=== PATIENT | female | born 1950 | race Caucasian/White ===

== ENCOUNTER 2019-06-25 00:13 | Day surgery (SDC) | payer MEDICARE, SELFPAY ==
[2019-06-20 14:55] VITALS: BMI 23.4
[2019-06-25 07:47] VITALS: BP 139/81; PULSE 93; RESP 17; TEMP 36.6; O2SAT 100; BMI 21.4
--- NOTE | 2019-06-25 07:48 | P.PNAN_ITS ---
Anes - Initial Pre Proc Eval Procedure: Operation Date: 06/25/19 08:30 Proposed Procedures p Esophagogastroduodenoscopy & Colonoscopy - Gibson Billings MD Date/Time: 06/25/19 07:48 Surgeon: Gibson Billings MD Pre Op Diagnosis: Change In Bowel Habits/ Epigastric Pain Patient Data Age: 69 Gender: F Height: 5 ft 8 in Weight: 64 kg Last Vital Signs Temp 97.8 F 06/25/19 07:47 Pulse 93 06/25/19 07:47 Resp 17 06/25/19 07:47 BP 139/81 06/25/19 07:47 Pulse Ox 100 06/25/19 07:47 Allergies Allergy/AdvReac Type Severity Reaction Status Date / Time No Known Allergies Allergy Verified 06/25/19 07:43 Home Medications Medication Instructions Recorded Confirmed Type calcium carbonate [Calcium 500] 500 mg PO DAILY 06/20/19 06/25/19 History conjugated estrogens [Premarin] 1 applic TOPICAL [id number] 06/20/19 06/20/19 History lisinopril 10 mg PO DAILY 06/20/19 06/25/19 History vihpbsagntcy-pzq-gvhh-FA-vit K 1 tablet PO DAILY 06/20/19 06/20/19 History [Adults Multivitamin] Patient hx anesthesia problems: none Family hx anesthesia problems: none [facility] Past Medical History Medical History (Updated 06/25/19 @ 07:48 by Stanley Poon MD) GERD (gastroesophageal reflux disease) Hypertension Anes - Eval Final PreProcedure Day of Procedure 06/25/19 07:48 Patient weight: normal Heart: regular rate and rhythm Lungs: clear to auscultation Airway: Mallampati scale class II Neurological: alert and oriented Last oral intake: >/= 8 hours ASA classification: II Emergent: no Anesthetic plan: proceed Anesthesia type and monitoring: general GIVS and standard monitoring Informed Consent: The patient's anesthetic plan and its attendant risks and benefits were discussed with the patient/family/POA. Questions were solicited and answers provided to the satisfaction of the patient/family/POA.
[2019-06-25] MEDS: LACTATED RINGERS 1,000 ML 150 ML IV CONT (08:08)
--- NOTE | 2019-06-25 09:25 | WPDGICN ---
Assessment and Plan Additional Plan This is a 69-year-old white female patient seen in evaluation at the request of Melvin Guzman patient presents for evaluation of abdominal pain. She reports right-sided abdominal pain for at least 1 year. Described as a fullness occasionally comes and goes. Especially in the lower right side but also left upper quadrant epigastric area. She complains of many year history of constipation. She states that she has bowel movements daily. Bowel movements appear improved with taking MiraLax. She often describes her pain as a stinging or burning pain. He denies any blood in her stools. Past medical history is significant for hypertension. She has a history of fecal impaction 10 years ago. Describes irregular bowel habits. Colonoscopy 2014 showed a hyperplastic polyp. June 2017 had gastritis by EGD. Medications: She was advised take ranitidine but does not take it. Other medications include lisinopril, calcium and vitamins. She has no stated drug allergies. Physical exam reveals her to be alert. Oriented x3. HEENT exam unremarkable. Lungs are clear to auscultation and percussion. She locates pain to the right rib cage. Heart is without murmur or extra sounds. Abdominal exam bowel sounds present soft nontender with no hepatosplenomegaly. Digital external rectal exam normal. Impression 1. Epigastric pain. Poorly described pain. She does have a history of gastritis in the past. 2. Abdominal pain some of this may be right lateral chest pain. 3. Change in bowel habits. 4. History of fecal impaction. 5. History of gastritis. Plan is for milk a magnesia and fiber supplements daily. Colonoscopy an EGD will be performed. GI Consult Note Consult date/time: 06/25/19 09:25 HPI: Cassandra Harding is a 69 year old female [facility] Past Medical History Medical History (Updated 06/25/19 @ 07:48 by Stanley Poon MD) GERD (gastroesophageal reflux disease) Hypertension Meds Home Medications and Allergies Home Medications Medication Instructions Recorded Confirmed Type calcium carbonate [Calcium 500] 500 mg PO DAILY 06/20/19 06/25/19 History conjugated estrogens [Premarin] 1 applic TOPICAL [id number] 06/20/19 06/25/19 History lisinopril 10 mg PO DAILY 06/20/19 06/25/19 History oyvymaxlowxw-cps-tryp-FA-vit K 1 tablet PO DAILY 06/20/19 06/25/19 History [Adults Multivitamin] Allergies Allergy/AdvReac Type Severity Reaction Status Date / Time No Known Allergies Allergy Verified 06/25/19 07:43 Vital Signs Vital Signs - 24 hr 06/25/19 07:47 Temperature 36.6 C Pulse Rate 93 Respiratory Rate 17 Blood Pressure 139/81 Pulse Oximetry 100
[2019-06-25 09:28] VITALS: BP 98/66; PULSE 77; RESP 20; O2SAT 100
[2019-06-25 09:38] VITALS: BP 111/73; PULSE 70; RESP 19; O2SAT 100
[2019-06-25 09:48] VITALS: BP 132/92; PULSE 70; RESP 18; O2SAT 100
== END 2019-06-25 10:10 | disposition home or self-care (01) ==
PROVIDERS: PCP Family Medicine; Visit Provider Internal Medicine Gastroenterology
PROC: 0DJ08ZZ Inspection of Upper Intestinal Tract, Via Natural or Artificial Opening Endoscopic (ICD-10-PCS; CPT 43235; principal; 2019-06-25 08:30)
DX: K21.0 Gastro-esophageal reflux disease with esophagitis (principal); I10 Essential (primary) hypertension
CPT/HCPCS: 43239; 87081; J2704; J7120

== ENCOUNTER 2023-07-21 14:02 | Outpatient (CLI) | payer MEDICARE, SELFPAY ==
--- NOTE | ~2023-07-21 | US_ITS ---
US soft tissue abdomen 07/21/2023 14:28 Indication: Right lateral side pain Procedure: High-resolution Limited ultrasound of the right upper abdomen Comparison: No prior studies for comparison. Findings: No discrete mass identified in the perioperative palpable concern. There is an echogenic de pendent focus in the gallbladder without shadowing, suspicious for stone. No abnormal fluid collectio ns. Impression: 1: No mass identified corresponding to the area of palpable concern. 2: Possible gallstone versus sludge. Reviewed, dictated and finalized at location A. Impression: 1: No mass identified corresponding to the area of palpable concern. 2: Possible gallstone versus sludge.
== END 2023-07-21 14:03 | disposition home or self-care (01) ==
PROVIDERS: PCP Family Medicine; Visit Provider Nurse Practitioner
DX: R10.9 Unspecified abdominal pain (principal)
CPT/HCPCS: 76705

== ENCOUNTER 2023-08-10 07:50 | Day surgery (SDC) | payer MEDICARE, SELFPAY ==
[2023-06-28 06:18] VITALS: BMI 23.2
[2023-07-04 11:50] VITALS: BMI 23.1
[2023-07-25 15:16] VITALS: BMI 22.8
[2023-08-10 08:22] VITALS: BMI 22.6
[2023-08-10 08:24] VITALS: BP 118/75; PULSE 74; RESP 14; TEMP 36.5; O2SAT 98
[2023-08-10] MEDS: LACTATED RINGERS 1,000 ML 150 ML IV CONT (08:46)
--- NOTE | 2023-08-10 08:54 | WPDANESEPPF ---
Anes - Initial Pre Proc Eval Procedure: Operation Date: 08/10/23 10:00 Proposed Procedures p Esophagogastroduodenoscopy - Gibson Billings MD Date/Time: 08/10/23 08:54 Surgeon: Gibson Billings MD Pre Op Diagnosis: Unspecified abdominal pain Patient Data Age: 73 Gender: F Height: 1.7 m Weight: 65.75 kg Last Vital Signs Temp 36.5 C 08/10/23 08:24 Pulse 74 08/10/23 08:24 Resp 14 08/10/23 08:24 BP 118/75 08/10/23 08:24 Pulse Ox 98 08/10/23 08:24 O2 Del Method Room Air 08/10/23 08:24 Allergies Allergy/AdvReac Type Severity Reaction Status Date / Time No Known Allergies Allergy Verified 08/10/23 08:15 Home Medications Medication Instructions Recorded Confirmed Type calcium carbonate 500 mg calcium 500 mg PO DAILY 06/20/19 08/10/23 History (1,250 mg) tablet (Calcium 500) conjugated estrogens 0.625 mg/gram 1 applic topical [id number] hormone 06/20/19 08/10/23 History vaginal cream (Premarin) lisinopril 10 mg tablet 10 mg PO DAILY 06/20/19 08/10/23 History multivit with minerals-iron 18 1 tablet PO DAILY 06/20/19 08/10/23 History mg-folic ac 400 mcg-vit K 25 mcg tablet (Adults Multivitamin) Patient hx anesthesia problems: none Family hx anesthesia problems: none Results Review: All pre-operative results and documents have been reviewed as part of the pre-operative evaluation. [facility] Past Medical History Medical History Abdominal pain, chronic, right upper quadrant Gallstones GERD (gastroesophageal reflux disease) GERD with esophagitis Hypertension Irritable bowel syndrome with constipation Reflux esophagitis Right-sided abdominal pain of unknown cause Surgical History Surgical History History of hysterectomy History of left breast biopsy History of lung biopsy Family History Family History Other Cerebrovascular accident Heart disease Hypertension Social History Social History Smoking status: Never smoker Tobacco type: cigarettes Alcohol intake: current Alcohol use details: seldom Substance use: never Substance use type: does not use Living arrangements: alone Additional living arrangements comments: Occupation/Education: retired Gender identity (if verbalized by the patient): Female Spiritual care concerns: No Anes - Eval Final PreProcedure Day of Procedure 08/10/23 08:54 Patient weight: normal Heart: regular rate and rhythm Lungs: clear to auscultation Airway: Mallampati scale class II Neurological: alert and oriented Last oral intake: >/= 8 hours ASA classification: II Emergent: no Anesthetic plan: proceed Anesthesia type and monitoring: general GIVS and standard monitoring Results Review: All pre-operative results and documents have been reviewed as part of the pre-operative evaluation. Informed Consent: The patient's anesthetic plan and its attendant risks and benefits were discussed with the patient/family/POA. Questions were solicited and answers provided to the satisfaction of the patient/family/POA.
--- NOTE | 2023-08-10 09:02 | PM.HPGS ---
History of Present Illness History of Present Illness Consent: Risks, benefits, and alternatives have been discussed and questions answered. Patient agrees to proceed with procedure. Chief complaint: Unspecified abdominal pain Narrative: Cassandra Harding is a 73 year old female planes of left and right lateral rib pain. This occurs in her chest. Is not related to eating. Currently denies any heartburn. EGD in 2019 revealed distal esophageal attributed to acid reflux. Patient is to firm but very infrequently. She denies dysphagia. Review of Systems Review of Systems: Review of systems is noncontributory. [facility] Past Medical History Medical History Abdominal pain, chronic, right upper quadrant Gallstones GERD (gastroesophageal reflux disease) GERD with esophagitis Hypertension Irritable bowel syndrome with constipation Reflux esophagitis Right-sided abdominal pain of unknown cause Surgical History Surgical History History of hysterectomy History of left breast biopsy History of lung biopsy Family History Family History Other Cerebrovascular accident Heart disease Hypertension Social History Social History Smoking status: Never smoker Tobacco type: cigarettes Alcohol intake: current Alcohol use details: seldom Substance use: never Substance use type: does not use Living arrangements: alone Additional living arrangements comments: Occupation/Education: retired Gender identity (if verbalized by the patient): Female Spiritual care concerns: No Meds Home Medications and Allergies Home Medications Medication Instructions Recorded Confirmed Type calcium carbonate 500 mg calcium 500 mg PO DAILY 06/20/19 08/10/23 History (1,250 mg) tablet (Calcium 500) conjugated estrogens 0.625 mg/gram 1 applic topical [id number] hormone 06/20/19 08/10/23 History vaginal cream (Premarin) lisinopril 10 mg tablet 10 mg PO DAILY 06/20/19 08/10/23 History multivit with minerals-iron 18 1 tablet PO DAILY 06/20/19 08/10/23 History mg-folic ac 400 mcg-vit K 25 mcg tablet (Adults Multivitamin) Allergies Allergy/AdvReac Type Severity Reaction Status Date / Time No Known Allergies Allergy Verified 08/10/23 08:15 Vital Signs Vital Signs - 24 hr 08/10/23 08:24 Temperature 97.7 F Pulse Rate 74 Respiratory Rate 14 Blood Pressure 118/75 Pulse Oximetry 98 Oxygen Delivery Room Air Exam Narrative: Physical exam reveals patient to be alert. Vital signs stable. HEENT is unremarkable. Patient is anicteric is are clear to auscultation and to percussion. Heart is without murmur or extra sounds. Abdomen bowel sounds are present soft nontender with no organomegaly. Digital external rectal exam normal. Assessment and Plan Assessment and plan (1) Atypical chest pain: Code(s): R07.89 - Other chest pain Status: Acute Assessment and Plan: Patient with rather atypical chest pain appears to be musculoskeletal in nature. EGD was requested will be performed. (2) Reflux esophagitis: Code(s): K21.00 - Gastro-esophageal reflux disease with esophagitis, without bleeding Status: Acute Assessment and Plan: Patient has a history of reflux esophagitis by endoscopy in 2020. Currently patient denies heartburn . she is taking no specific medications excited from in her occasional Tums.
[2023-08-10 09:47] VITALS: BP 109/62; PULSE 66; RESP 15; O2SAT 99
[2023-08-10 09:57] VITALS: BP 109/71; PULSE 59; RESP 16; O2SAT 100
--- NOTE | 2023-08-10 09:59 | WPDANESPN ---
Anes - Prog Note Post-Op Date/Time: 08/10/23 09:59 Cardiovascular status: normal Respiratory status: normal Airway patency: baseline Mental status: baseline Post-Op hydration status: normal Vital Signs: Last Vital Signs Temp 36.5 C 08/10/23 08:24 Pulse 74 08/10/23 08:24 Resp 14 08/10/23 08:24 BP 118/75 08/10/23 08:24 Pulse Ox 98 08/10/23 08:24 O2 Del Method Room Air 08/10/23 08:24 Pain Score (VAS): 0 I/O: Intake & Output 08/09/23 08/10/23 08/10/23 23:59 07:59 15:59 Intake Total 0 Balance 0 Patient Feedback: Patient satisfied with anesthetic care.
[2023-08-10 10:07] VITALS: BP 122/93; PULSE 58; RESP 16; O2SAT 100
== END 2023-08-10 10:25 | disposition home or self-care (01) ==
PROVIDERS: PCP Family Medicine; Visit Provider Internal Medicine Gastroenterology
PROC: 0DJ08ZZ Inspection of Upper Intestinal Tract, Via Natural or Artificial Opening Endoscopic (ICD-10-PCS; CPT 43235; principal; 2023-08-10 10:00)
DX: R07.89 Other chest pain (principal)
CPT/HCPCS: 43239

== ENCOUNTER 2023-08-22 07:24 | Outpatient (CLI) | payer MEDICARE, SELFPAY ==
--- NOTE | ~2023-08-22 | US_ITS ---
Limited Abdominal Sonogram: Real-time sonographic imaging of the right upper quadrant was performed. Clinical History: Right upper quadrant pain Findings: The liver appears normal with no evidence of bile duct dilatation. There is a 1.4 cm hyper echoic mass in the liver, most likely hemangioma. Main portal vein demonstrates normal direction of f low. The gallbladder is well distended, and demonstrates 5 mm gallbladder wall polyp. The common bile duct measures 2 mm. The visualized pancreas, aorta, and IVC are unremarkable. Impression: 1.4 cm hyperechoic mass in the liver, most likely hemangioma. Follow-up MR could be considered to att empt to further confirm this diagnosis. 5 mm gallbladder wall polyp. Reviewed, dictated and finalized at [facility]. Impression: 1.4 cm hyperechoic mass in the liver, most likely hemangioma. Follow-up MR coul d be considered to attempt to further confirm this diagnosis. 5 mm gallbladder wall polyp.
== END 2023-08-22 07:25 ==
LOC: GOSHIMG 07:25
PROVIDERS: PCP Family Medicine; Visit Provider Surgery
DX: R10.11 Right upper quadrant pain (principal); K82.4 Cholesterolosis of gallbladder
CPT/HCPCS: 76705

== ENCOUNTER 2023-08-22 08:33 | Outpatient (CLI) | payer MEDICARE, SELFPAY ==
--- NOTE | ~2023-08-22 | NM_ITS ---
EXAMINATION: NM hepatobiliary w pharm DATE: 08/22/2023 13:27 CDT INDICATION: Right upper quadrant pain COMPARISON: Ultrasound dated 08/22/2023 TECHNIQUE: 5.3 millicuries Choletec was administered intravenously. Scintigraphic images of the abdo men were obtained for one hour. 1.3 mcg of cholecystokinin was then administered with additional 30 m inute imaging of the abdomen. Gallbladder ejection fraction was calculated by the technologist. FINDINGS: There is homogeneous tracer uptake by the liver. Common bile duct activity is seen at 20, and gallbladder activity by 20. There is radiotracer activity in the proximal small bowel loops by 5 0. Following administration of cholecystokinin, gallbladder ejection fraction is calculated to be 65 percent. IMPRESSION: 1. Patent cystic duct and common bile duct. No scintigraphic evidence for acute cholecystitis. 2. Gallbladder ejection fraction at 65 % (normal is 35% or greater). Reviewed, dictated and finalized at location B. IMPRESSION: 1. Patent cystic duct and common bile duct. No scintigraphic evidence for acu te cholecystitis. 2. Gallbladder ejection fraction at 65 % (normal is 35% or greater).
== END 2023-08-22 08:34 | disposition home or self-care (01) ==
LOC: ANHIMG 08:34
PROVIDERS: PCP Family Medicine; Visit Provider Surgery
DX: R10.11 Right upper quadrant pain (principal)
CPT/HCPCS: 78227; A9537; J2805